=== PATIENT | female | born 1940 | race Caucasian/White ===

== ENCOUNTER → 2017-07-14 | Outpatient (CLI) | payer OTHER, MEDICARE ==
[~2017-07-14] MED LIST: ALLEGRA ALLERG180 MG; ASPIR 8181 MG PO; BENICAR20 MG PO; CENTRUM SILVER1 EAC4 PO; CITRACAL-VIT D1 EAC2; COMBIVENT RESPIM4 GM INH; DUONEB 2.5-0.5 M3 ML; HYDROCHLOROTHIA25 M2 PO; PREDNISONE 20 M20 MG PO; SEREVENT DISKU50 MCG INH; SIMVASTATIN40 MG PO; ZPAK PO
== END ==
LOC: NUC 07:28
DX: I48.91 Unspecified atrial fibrillation (principal)

== ENCOUNTER 2017-08-05 22:55 | Inpatient (IN) | payer OTHER, MEDICARE ==
[~2017-08-05] VITALS: Ht 152.4 cm; Wt 44.9 kg
--- NOTE | ~2017-08-05 | EKG ---
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: ann marie : 1940 Requested By: Sarbina Crowe Order Number: [id number] MD: Boaz Strickland Measurements Intervals [place] Rate: 101 P: 81 MS: 178 QRS: -53 QRSD: 129 T: 94 QT: 364 QTc: 472 Interpretive Statements Sinus tachycardia Left bundle branch block Compared to ECG 02/21/2017 06:22:04 No significant change was found Electronically Signed On 08-06-2017 7:42:29 CDT by Boaz Strickland [email or web address] <ELECTRONICALLY SIGNED> By: Boaz Strickland MD, [facility] 08/06/17 0742 D: 10/2324 24 Boaz Strickland MD, FACC /EPI
[2017-08-05 22:56] VITALS: BP 191/93
[2017-08-05 23:32] LABS: HEMATOCRIT 38.6 % (37.0-47.0); HEMOGLOBIN 12.8 gm/dL (12.0-15.0); MCH 28.9 pg (26.0-34.0); MCHC 33.1 g/dL (28.0-37.0); MCV 87.2 fL (80.0-100.0); PLATELET COUNT 256 thou/uL (150-400); RBC 4.43 mil/uL (4.20-5.00); WBC 10.9 thou/uL (4.0-11.0)
[2017-08-05 23:35] LABS: MANUAL DIFF YES
[2017-08-05 23:38] LABS: ANION GAP 5 mmol/L (7-16); BUN 20 mg/dL (7-18); CALCIUM 10.1 mg/dL (8.5-10.1); CHLORIDE 98 mmol/L (98-107); CO2 35 mmol/L (21-32); CREATININE 1.1 mg/dL (0.6-1.0); GLUCOSE 111 mg/dL (74-106); SODIUM 138 mmol/L (136-145)
[2017-08-05 23:46] LABS: TROPONIN-I < 0.04 ng/mL (<0.04-0.07)
[2017-08-06] VITALS (9 sets, daily range): BP systolic 109–152; BP diastolic 47–67
[2017-08-06 00:27] LABS: ABSOLUTE NEUTROPHILS 5.3 thou/uL (1.4-8.2); ATYPICAL LYMPHS 3 %; TOTAL CELL COUNT 100
[2017-08-06 00:40] LABS: ABG COMMENT HOME O2 AT 2LPM; ABG SAMPLE TYPE ARTERIAL; BE(vivo) 6.1 mmol/L (-2 to +3); HCO3 30.4 mmol/L (22.0-26.0); LACTATE 1.12 mmol/L (0.5-2.0); O2(CT) 18.2 mL/dL (15.0-23.0); O2Hb 96.7 % (92.0-98.0); PCO2 42.7 mmHg (35.0-45.0); STICK SITE R.BRACHIAL; sO2 97.7 % (92.0-98.0); tCO2 31.7 mmol/L (24.0-30.0)
[2017-08-06] MEDS ORDERED: NORVASC10 MG PO (10:35)
[2017-08-07 03:26] VITALS: BP 122/50
[2017-08-07 07:18] LABS: HEMATOCRIT 30.4 % (37.0-47.0); MCH 29.8 pg (26.0-34.0); MCV 87.6 fL (80.0-100.0); RBC 3.47 mil/uL (4.20-5.00); RDW 13.1 % (10.5-14.5)
[2017-08-07 07:20] LABS: HEMOGLOBIN 10.3 gm/dL (12.0-15.0)
[2017-08-07 07:46] LABS: CALCIUM 9.3 mg/dL (8.5-10.1); POTASSIUM 4.4 mmol/L (3.5-5.1)
[2017-08-07 12:32] VITALS: BP 133/52
== END 2017-08-07 14:45 | disposition home or self-care (01) | DRG 304 ==
LOC: ER 22:55 → 4E 08-06 01:37 → EROBS 08-06 01:37 → 4E 08-06 02:19
PROVIDERS: Emergency Medicine; Nurse Practitioner Family
DX: I16.1 Hypertensive emergency (principal); R65.11 Systemic inflammatory response syndrome (SIRS) of non-infectious origin with acute organ dysfunction; N17.9 Acute kidney failure, unspecified; I10 Essential (primary) hypertension; E78.00 Pure hypercholesterolemia, unspecified; M19.90 Unspecified osteoarthritis, unspecified site; F41.9 Anxiety disorder, unspecified; J44.9 Chronic obstructive pulmonary disease, unspecified; M81.0 Age-related osteoporosis without current pathological fracture; Z88.6 Allergy status to analgesic agent; Z95.0 Presence of cardiac pacemaker; Z90.49 Acquired absence of other specified parts of digestive tract; Z90.710 Acquired absence of both cervix and uterus; Z88.1 Allergy status to other antibiotic agents; Z88.2 Allergy status to sulfonamides; Z88.8 Allergy status to other drugs, medicaments and biological substances; Z87.891 Personal history of nicotine dependence; Z79.899 Other long term (current) drug therapy
CPT/HCPCS: 10183

== ENCOUNTER → 2019-01-21 | Outpatient (CLI) | payer OTHER, MEDICARE ==
[~2019-01-21] MED LIST changes: +ASPIRIN325 PO; +CITRACAL + D31 EACH PO; +NORVASC10 MG PO; +SYNTHROID25 MC1 PO; +UNICOMPLEX M TA1 TA1 PO
--- NOTE | 2019-01-21 14:51 | 2DMMODE ---
[facility] [place] [address] 2 D/M-MODE ECHOCARDIOGRAM Name: CRISTI SAGASTUME Room #: REG [facility]#: [id number] ������������� Admission: 01/21/19 ������������� Attend Phys: Davie Mccullough MD Discharge: ��� ������������� ��� Date of : 36 Date of Service: 01/21/19 1451 �� Report #: [id number] �������� ��������������������������������������������[id number] THIS REPORT FOR: //name// APPROVED REPORT Study performed: 01/21/2019 14:06:05 EXAM: Comprehensive 2D, Doppler, and color-flow Echocardiogram Patient Location: Out-Patient Room #: Echo lab 2 Status: routine BSA: 1.36 HR: 77 bpm BP: 138/74 mmHg Rhythm: Pacemaker Other Information Study Quality: Good Indications Pacemaker Hypertension/HDD 2D Dimensions RVDd: 26.28 mm IVSd: 8.14 (7-11mm) LVOT Diam: 21.11 (18-24mm) LVDd: 44.64 mm PWd: 8.35 (7-11mm) Ascending Ao: 23.54 (22-36mm) LVDs: 28.98 (25-40mm) Aortic Root: 26.27 mm IVC: 14.00 mm Volumes Left Atrial Volume (Systole) Single Plane 4CH: 38.26 mL Single Plane 2CH: 25.75 mL LA ESV Index: 26.00 mL/m2 Aortic Valve AoV Peak Alexis.: 1.46 m/s AO Peak Gr.: 8.54 mmHg LVOT Max P.95 mmHg LVOT Max V: 0.86 m/s ROBERT Vmax: 2.06 cm2 Mitral Valve E/A Ratio: 0.7 MV Decel. Time: 166.04 ms [facility] [email or web address] [address] 2 D/M-MODE ECHOCARDIOGRAM Name: CRISTI SAGASTUME Room #: REG [facility]#: [id number] ������������� Admission: 01/21/19 ������������� Attend Phys: Davie Mccullough MD Discharge: ��� ������������� ��� Date of : 36 Date of Service: 01/21/19 1451 �� Report #: [id number] �������� ��������������������������������������������[id number] MV E Max Alexis.: 0.92 m/s MV A Alexis.: 1.26 m/s MV PHT: 48.15 ms IVRT: 143.02 ms Pulmonary Valve PV Peak Alexis.: 1.10 m/s PV Peak Gr.: 4.89 mmHg Pulmonary Vein P Vein S: 0.77 m/s P Vein A: 0.57 m/s P Vein D: 0.62 m/s P Vein A Dur.: 133.8 msec P Vein S/D Ratio: 1.24 Tricuspid Valve TR Peak Alexis.: 3.39 m/s TR Peak Gr.: 45.92 mmHg PA Pressure: 51.00 mmHg Left Ventricle The left ventricle is normal size. There is normal LV segmental wall motion. There is normal left ventricular wall thickness. The left ventricular systolic function is normal. The left ventricular ejection fraction is within the normal range. LVEF is 55-60%. Grade I - abnormal relaxation pattern. Right Ventricle The right ventricle is normal size. The right ventricular systolic function is normal. Pacemaker lead is present in the right ventricle. Atria The left atrium size is normal. The right atrium size is normal. Pacemaker lead is present in the right atrium. Aortic Valve The aortic valve is normal in structure. Aortic valve is calcified. No aortic regurgitation is present. There is no aortic valvular stenosis. Mitral Valve The mitral valve is normal in structure. Mild mitral regurgitation. No evidence of mitral valve stenosis. Tricuspid Valve The tricuspid valve is normal in structure. There is mild tricuspid regurgitation. The right atrial pressure is estimated at 45mmHg. There is moderate pulmonary hypertension. [facility] [address] [place] [address] 2 D/M-MODE ECHOCARDIOGRAM Name: MITESHCRISTI THIBODEAUX Room #: REG CL [facility]#: [id number] ������������� Admission: 01/21/19 ������������� Attend Phys: Davie Mccullough MD Discharge: ��� ������������� ��� Date of : 36 Date of Service: 01/21/19 1451 �� Report #: [id number] �������� ��������������������������������������������[id number] Pulmonic Valve The pulmonary valve is normal in structure. There is no pulmonic valvular regurgitation. Great Vessels The aortic root is normal in size. IVC is normal in size and collapses >50% with inspiration. Pericardium There is no pericardial effusion. <Conclusion> The left ventricle is normal size. There is normal left ventricular wall thickness. The left ventricular systolic function is normal. Grade I - abnormal relaxation pattern. The right ventricle is normal size. Pacemaker lead is present in the right ventricle. The left atrium size is normal. The right atrium size is normal. Pacemaker lead is present in the right atrium. Aortic valve is calcified. Mild mitral regurgitation. There is mild tricuspid regurgitation. The right atrial pressure is estimated at 45mmHg. ��������������������������������������������� <ELECTRONICALLY SIGNED> ���������������������������������������� By: Davie Mccullough MD ��������������������������������������������� 01/21/19 145 [id number] 145 Davie Mccullough MD /INF
== END ==
LOC: CV 09:20
DX: I08.3 Combined rheumatic disorders of mitral, aortic and tricuspid valves (principal); I48.91 Unspecified atrial fibrillation; Z95.0 Presence of cardiac pacemaker

== ENCOUNTER 2019-02-06 18:17 | Emergency (ER) | payer OTHER, MEDICARE ==
[~2019-02-06] VITALS: Ht 152.4 cm; Wt 43.1 kg
[2019-02-06 20:00] LABS: URINE BILIRUBIN NEGATIVE (Negative); URINE BLOOD NEGATIVE (Negative); URINE CLARITY CLEAR; URINE COLOR YELLOW; URINE GLUCOSE-RANDOM* NEGATIVE (Negative); URINE KETONES NEGATIVE (Negative); URINE LEUKOCYTES-REFLEX TRACE (Negative); URINE NITRITE-REFLEX NEGATIVE (Negative); URINE PROTEIN (DIPSTICK) NEGATIVE (Negative); URINE SPECIFIC GRAVITY 1.015 (1.005-1.035); URINE UROBILINOGEN 0.2 E.U./dl (0.2-1.0)
[2019-02-06] MEDS ORDERED: DIFLUCAN200 MG PO (20:32)
[2019-02-06] MEDS ORDERED: MAGIC MOUTHWASH SW&SWALLOW (20:32)
[2019-02-06 20:58] VITALS: BP 171/47
== END 2019-02-06 20:59 | disposition home or self-care (01) ==
LOC: ER 18:17
PROVIDERS: Nurse Practitioner Family
DX: B37.0 Candidal stomatitis (principal); R30.0 Dysuria; M26.623 Arthralgia of bilateral temporomandibular joint; I10 Essential (primary) hypertension; E78.00 Pure hypercholesterolemia, unspecified; M19.90 Unspecified osteoarthritis, unspecified site; Z90.49 Acquired absence of other specified parts of digestive tract; Z90.710 Acquired absence of both cervix and uterus; Z95.0 Presence of cardiac pacemaker; Z87.891 Personal history of nicotine dependence; Z88.1 Allergy status to other antibiotic agents; Z88.2 Allergy status to sulfonamides; Z88.5 Allergy status to narcotic agent; Z88.8 Allergy status to other drugs, medicaments and biological substances

== ENCOUNTER 2019-03-07 16:49 | Inpatient (IN) | payer OTHER, MEDICARE ==
[~2019-03-07] VITALS: Ht 152.4 cm; Wt 41.7 kg
[2019-03-07 16:49] VITALS: BP 148/47
[~2019-03-07 16:49] MED LIST changes: +DIFLUCAN200 MG PO; +MAGIC MOUTHWASH SW&SWALLOW
[2019-03-07 17:21] LABS: ABSOLUTE NEUTROPHILS 13.3 thou/uL (1.4-8.2); BASOPHILS 0.3 % (0.0-2.0); EOSINOPHILS 0.1 % (0.0-3.0); HEMATOCRIT 37.3 % (37.0-47.0); HEMOGLOBIN 12.1 gm/dL (12.0-15.0); LYMPHOCYTES 2.6 % (24.0-44.0); MCH 27.4 pg (26.0-34.0); MCHC 32.5 g/dL (28.0-37.0); MCV 84.3 fL (80.0-100.0); MONOCYTES 3.1 % (1.0-8.0); PLATELET COUNT 349 thou/uL (150-400); POLYS 93.9 % (36.0-66.0); RBC 4.43 mil/uL (4.20-5.00); RDW 14.2 % (10.5-14.5); WBC 14.1 thou/uL (4.0-11.0)
[2019-03-07 17:34] LABS: ANION GAP 9 mmol/L (7-16); BUN 39 mg/dL (7-18); CALCIUM 9.8 mg/dL (8.5-10.1); CHLORIDE 101 mmol/L (98-107); CO2 30 mmol/L (21-32); CREATININE 1.4 mg/dL (0.6-1.0); GLUCOSE 157 mg/dL (74-106); POTASSIUM 4.2 mmol/L (3.5-5.1); SODIUM 140 mmol/L (136-145)
[2019-03-07 17:36] LABS: BE(vivo) 1.4 mmol/L (-2 to +3); HCO3 26.1 mmol/L (22.0-26.0); PCO2 41.6 mmHg (35.0-45.0); PO2 84.2 mmHg (80.0-100.0); pH 7.416 (7.360-7.450); sO2 96.5 % (92.0-98.0)
[2019-03-07 17:43] LABS: ALBUMIN 4.2 g/dL (3.4-5.0); SGOT 24 U/L (15-37); SGPT 27 U/L (30-65); TOTAL BILIRUBIN 0.2 mg/dL (<0.1-1.0); TOTAL PROTEIN 7.8 g/dL (6.4-8.2); TROPONIN-I <0.06 ng/mL (<0.06)
[2019-03-07] MEDS ORDERED: CIPRO500 MG PO (18:21)
[2019-03-07] MEDS ORDERED: PREDNISONE 10 M10 MG PO (18:21)
[2019-03-07 20:19] VITALS: BP 143/52
[2019-03-07 20:45] VITALS: BP 167/49
[2019-03-07 21:31] LABS: URINE BILIRUBIN NEGATIVE (Negative); URINE BLOOD NEGATIVE (Negative); URINE CLARITY CLEAR; URINE COLOR YELLOW; URINE GLUCOSE-RANDOM* NEGATIVE (Negative); URINE KETONES NEGATIVE (Negative); URINE NITRITE-REFLEX NEGATIVE (Negative); URINE PROTEIN (DIPSTICK) 1+ (Negative); URINE SPECIFIC GRAVITY 1.025 (1.005-1.035); URINE UROBILINOGEN 0.2 E.U./dl (0.2-1.0)
[2019-03-07 21:33] LABS: URINE LEUKOCYTES-REFLEX 2+ (Negative)
[2019-03-07 21:37] LABS: BACTERIA-REFLEX >30 Many /HPF (None Seen); CASTS None Seen /LPF (None Seen); CRYSTALS None Seen /LPF (None Seen); MUCUS 0-3 Light strn/LPF (None Seen); SQUAMOUS 4-10 Moderate /LPF (0-3); URINE RBC 0-2 Rare /HPF (0-2)
--- NOTE | 2019-03-07 23:27 | NUR ---
Admission history and assessments completed. Careplan initiated. IVFluids ans antibiotics started.
[2019-03-08 00:30] VITALS: BP 139/40
--- NOTE | 2019-03-08 04:27 | NUR ---
Making slow progress towards outcome goals. IVFluids infusing. High fall risk, fall precautions in place. Uses call light appropriately for needs. For CT Spine r/t findings on Lumbar and T-spine x ray. Vital signs and rhythm stable.
[2019-03-08 04:45] VITALS: BP 131/48
[2019-03-08 05:43] LABS: HEMOGLOBIN 11.1 gm/dL (12.0-15.0); MCH 27.3 pg (26.0-34.0); MCHC 32.7 g/dL (28.0-37.0); MCV 83.6 fL (80.0-100.0); RBC 4.06 mil/uL (4.20-5.00); RDW 14.2 % (10.5-14.5); WBC 7.6 thou/uL (4.0-11.0)
--- NOTE | 2019-03-08 05:48 | NUR ---
Patient awake, 5 beat run vtach. Patient aysmptomatic. Reporsted to Ross flores NP. Check K and Magnesioum level.
[2019-03-08 05:52] LABS: CALCIUM 9.4 mg/dL (8.5-10.1); CREATININE 0.9 mg/dL (0.6-1.0); POTASSIUM 3.7 mmol/L (3.5-5.1)
--- NOTE | 2019-03-08 06:24 | NUR ---
K 3.7 ang Magnesium 1.9. Patient with pacemaker, states it was last interrogated last January by Dr Mccullough.
[2019-03-08 07:29] VITALS: BP 153/63
--- NOTE | 2019-03-08 09:32 | EKG ---
[address] [address] ELECTROCARDIOGRAM REPORT Name: MITESHCRISTI Room #: 363-P ADM IN M.R.#: [id number] ������������������ Admission: 03/07/19 ������������������ Attend Phys: yAaan Pedraza MD Discharge: ������������������ Date of : 38 Report #: [id number] ����������������������������������������������������������������� [id number] THIS REPORT FOR: //name// [facility] ED Test Date: 2019-03-07 Test Time: 17:13:50 Pat Name: CRISTI SAGASTUME Department: Room: 363 Gender: F Director Pharmacology: [id number] : 1940 Requested By: Ian Gramajo Order Number: [id number] MD: Davie Mccullough Measurements Intervals [place] Rate: 86 P: 82 NE: 159 QRS: 85 QRSD: 108 T: 54 QT: 373 QTc: 446 Interpretive Statements Sinus rhythm Nonspecific ST segment abnormality Compared to ECG 05/27/2018 18:24:36 Left bundle-branch block no longer present Electronically Signed On 03-08-2019 9:32:43 CDT by Davie Mccullough [email or web address] ��������������������������������������������� <ELECTRONICALLY SIGNED> ���������������������������������������� By: Davie Mccullough MD ��������������������������������������������� 03/08/19 0932 D: 05/1712 12 Davie Mccullough MD /BHAVIN
[2019-03-08 15:34] VITALS: BP 152/44
[2019-03-08 19:41] VITALS: BP 171/67
--- NOTE | 2019-03-08 20:53 | NUR ---
PT WITH LUNGS COARSE AND DIMINISHED...O2 2L BASELINE..GIVEN PRN DEXTRMETHOPHAN...WILL MONITOR..
[2019-03-09 00:14] VITALS: BP 148/61
[2019-03-09 04:16] VITALS: BP 165/70
--- NOTE | 2019-03-09 04:20 | NUR ---
Patient making progress towards outcome goals. High fall risks, fall precautions in place, Calls out appropriately for needs. IVfluids infusing. Oxygenation optimal with home O2 2L/NC. Still with some difficulty bringing up phlegm.
[2019-03-09 05:26] LABS: CREATININE 0.9 mg/dL (0.6-1.0); MAGNESIUM 1.7 mg/dL (1.8-2.4); POTASSIUM 3.7 mmol/L (3.5-5.1)
[2019-03-09 05:42] LABS: HEMOGLOBIN 11.2 gm/dL (12.0-15.0); MCV 84.7 fL (80.0-100.0); RBC 4.02 mil/uL (4.20-5.00); RDW 14.6 % (10.5-14.5); WBC 9.6 thou/uL (4.0-11.0)
[2019-03-09 07:47] VITALS: BP 155/67
[2019-03-09 09:10] VITALS: BP 157/51; BP 157/71
--- NOTE | 2019-03-09 11:00 | NUR ---
Nutrition: assess d/t low BMI. Pt admitted for COPD exacerbation. Pt states her UBW is ~113#. She has lost some weight over past year d/t medical issues. She was last here in May; weight down ~2 lbs since then. Her appetite has been poor recently, but is starting to improve now. She usually drinks Boost at home. She would like to try mckenna flavored Ensure clear. With nutrition intervention in place, consider low risk.
--- NOTE | 2019-03-09 14:32 | NUR ---
DISCHARGE PLANNING. ANTICIPATED DISCHARGE PLANNED FOR 1-2 DAYS. DISCHARGE PLAN IF TO HOME WITH HOME HEALTH SERVICES. REFERRAL FAXED TO [facility] PER PATIENT REQUEST. [facility] TO REVIEW REFERRAL AND NOTIFY CM ONCE COMPLETE. UNIT CM/SW AWARE. FOLLOWING TO ASSIST WITH DISCHARGE NEEDS.
--- NOTE | 2019-03-09 14:39 | NUR ---
INITIAL ASSESSMENT: Received consult for discharge planning. MEHDI reviewed chart and spoke with nursing and attending physician. Pt was admitted from home due to exacerbation of COPD. Pt is currently on IV abx and IV steroids. MEHDI met with pt at bedside. Introduced role of SW. Pt reports she lives at home alone, but has been staying with her neighbors recently. Prior to admission, pt was using a cane/walker and has home O2 in place through [employer]. Pt is normally on 2L via NC. Pt does have a nebulizer at home for breathing treatments. Pt has used [facility] in the past, and would like to use them again. MEHDI confirmed pt's home address and phone number. Pt's PCP is Dr. Ike Crowe. marketing planner to fax referral to [facility] for review. Plan is for pt to d/c home with HH services when medically stable. MEHDI is following to assist as needed with discharge planning.
[2019-03-09 18:30] VITALS: BP 149/62
--- NOTE | 2019-03-09 18:41 | NUR ---
ASSUMED PATIENT CARE AT 0700. A/O X4. ANXIOUS SOMETIME. DENIES PAIN. VSS. NO DISTRESS NOTED. SLOWLY TOWARDS POC GOALS.
[2019-03-09 20:00] VITALS: BP 170/56
[2019-03-10 04:26] VITALS: BP 164/78
--- NOTE | 2019-03-10 07:01 | NUR ---
Patient ALOx4, she was calm and cooperative all night. New IV 22 guage right AC IV started after left AC IV was accidentally dc'd while she was sleeping. Patient lung sounds were clear at time of assessment. Patient didn't report any distress or SOB overnight. Patient slept most of the shift. Patient has a good, productive cough with slight sputum production. Fall precautions in place. Patient is anxious to go home. Progress toward plan of care.
[2019-03-10 08:11] VITALS: BP 175/51
--- NOTE | 2019-03-10 14:16 | NUR ---
SW reviewed chart and spoke with nursing and attending physician. Pt is progressing towards goals for discharge. Discharge home with [facility] is anticipated in 1-2 days. MEHDI met with pt at bedside. Pt requested to complete Healthcare DPOA ppwk. Pt is alert/orientated x 4. Pt states she would like to appoint her friend, Carlos, as her primary DPOA and her [id number]-oyt, as her alternate DPOA. Pt's wishes documented on her behalf. Pt states that if there is no chance of meaningful recovery, she would not want to be kept alive by artificial means (ventilator support, dialysis, artificial hydration/nutrition). SW explained that these wishes can be amended or changed in the future, if that is desired. Pt verbalized understanding. Healthcare DPOA signed, witnessed and notarized. Pt states she is hoping to discharge by Friday, as she needs to sign the new lease for her new apt by the end of the day on Friday. SW is following to assist as needed with discharge planning.
[2019-03-10 16:50] VITALS: BP 196/62
--- NOTE | 2019-03-10 18:36 | NUR ---
ASSUMED PATIENT CARE AT 0700. A/O X4. TOLERATED ON 3L/NC. AMBULATED IN HALLWAY. PROGRESSING TOWARDS POC GOALS.
[2019-03-10 19:35] VITALS: BP 184/61
--- NOTE | 2019-03-11 00:13 | NUR ---
Patient dc'd from [facility] and is now MS. Patient taken to room 463 by house worker with all belongings. Report called to recieving nurse. Patient very cooperative about transfer.
[2019-03-11 00:52] VITALS: BP 178/68
--- NOTE | 2019-03-11 03:04 | NUR ---
ASSUMED CARE OF PT AT 0000HRS. PT IS AOX4 AND IS COOPERATIVE WITH STAFF. PT HAS A COUGH AND REQUESTED PRN COUGH SYRUP. 2L O2 VIA NC CONTINUED. ABX AND STEROIDS ALSO CONTINUED. PT HAS ELEVATED BP AND PRN BP MED WAS OBTAINED. NO OTHER S/S OF ACUTE DISTRESS. WILL CONTINUE TO MONITOR.
[2019-03-11 04:49] VITALS: BP 151/52
[2019-03-11 07:13] VITALS: BP 153/68
--- NOTE | 2019-03-11 10:28 | NUR ---
Late Entry: MEHDI was notified yesterday afternoon that pt's friend, Carlos, brought in a document that may assist with him signing pt's new apt lease on her behalf, should she still be in the hospital. SW was out of the building. Spiritual care was notified and went to review document for pt. MEHDI discussed with Director of Case Mgmt, that a letter can be formulated for pt if needed stating pt requests her friend, Carlos to sign her new apt lease. Letter would be signed by pt and notarized. Pt transferred to . MEHDI updated 4W CM/SW. MEHDI is following to assist as needed with discharge planning.
[2019-03-11 13:30] VITALS: BP 167/64
--- NOTE | 2019-03-11 14:27 | NUR ---
CARE TEAM INDICATED THAT PT WILL LIKELY BE MEDICALLY STABLE TO DISCHARGE HOME TOMORROW. PT IS TO HAVE [facility]. CM TO FOLLOW INDICATED WITH DC PLANNING.
[2019-03-11 19:45] VITALS: BP 154/52
--- NOTE | 2019-03-11 19:45 | NUR ---
ASSUMED CARE OF PATIENT AT 0715, PATIENT ALERT AND ORIENTED X 4. PATIENT UP WITH ASSIST X 1 TO BSC. PATIENT DENIES PAIN THIS AM, BUT C/O SOME BACK PAIN, BUT REFUSED PAIN MEDS THIS SHIFT, WANTS TO WORK UNTIL LATER TONIGHT. PATIENT HAS RIGHT AC IV IN PLACE, RECEIVING SOLU MEDROL IV. PATIENT WORKED WITH PHYSICAL THERAPY TODAY, AMBULATED IN HALLWAYS. PATIENT HAS O2 AT 2 LITERS/NC IN PLACE, INCREASE WITH ACTIVITY. PATIENT HAS COUGH, BUT REFUSES COUGH SYRUP AND TESSLON PERLES NEW ORDER FROM TODAY. WILL CONTINUE TO MONITOR.
--- NOTE | 2019-03-12 02:13 | NUR ---
ASSUMED CARE AROUND 1900. AXOX4. CHRONIC BACK PAIN TX PER MD ORDER. NO S/S ACUTE DISTRESS NOTED OR REPORTED AT THIS TIME. WILL CONT TO MONITOR FOR ANY CHANGES IN CONDITION.
[2019-03-12 05:02] VITALS: BP 148/68
[2019-03-12 08:00] VITALS: BP 172/65
--- NOTE | 2019-03-12 10:11 | NUR ---
YESTERDAY CM FOLLOWED UP WITH [facility]. HE INDICATED THAT HE HAD NOTERIZED THE DOCUMENT THAT PT NEEDED. CM TO FOLLOW INDICATED WITH DC PLANNING.
[2019-03-12 15:00] VITALS: BP 161/63
--- NOTE | 2019-03-12 15:47 | NUR ---
CARE TEAM INDICATED THAT PT WILL BE MEDICALLY STABLE TO DISHCARGE HOME TOMORROW Friday03/12/19. PT IS TO HAVE [facility] UPON DISCHARGE. ORDERS WILL NEED TO BE FAXED TO . PT WAS ISSUED A FWW FOR HOME USE BY [employer]. NO OTHER CM INTERVENTION INDICATED. CASE CLOSED.
--- NOTE | 2019-03-12 17:59 | NUR ---
PT VS STABLE THROUGHOUT SHIFT. PT UP TO CHAIR FOR SEVERAL HOURS AND WHEN IN BED MAINTAINED AN ELEVATED POSTION. FALL PRECAUTIONS IN PLACE. PT. HAD NO C/O SOA TODAY BUT SHE DID C/O PAIN. TRAMADOL HELPED PAIN SIGNFICANTLY. PLAN FOR D/C HOME TOMORROW. PT RESTING COMFORTABLY.
[2019-03-12 19:12] VITALS: BP 156/62
--- NOTE | 2019-03-13 03:13 | NUR ---
ASSUMED CARE AROUND 1900. AXOX4. PO ATB STARTED THIS PM. NO S/S ACUTE DISTRESS NOTED OR REPORTED AT THIS TIME. WILL CONT TO MONITOR FOR ANY CHANGES IN CONDITION.
[2019-03-13 04:20] VITALS: BP 150/56
[2019-03-13 09:20] VITALS: BP 137/52
[2019-03-13] MEDS ORDERED: BENZONATATE100 MG PO (12:15)
[2019-03-13] MEDS ORDERED: CEFUROXIME500 MG PO (12:15)
[2019-03-13] MEDS ORDERED: CARDIZEM CD120 MG PO (12:15)
[2019-03-13] MEDS ORDERED: MUCINEX600 MG PO (12:15)
[2019-03-13] MEDS ORDERED: ACETAMINOPHEN325 M1 PO (12:15)
[2019-03-13] MEDS ORDERED: DELSYM COU30 MG/5 M1 PO (12:15)
[2019-03-13] MEDS ORDERED: PREDNISONE 20 M20 M1 PO (12:15)
[2019-03-13] MEDS ORDERED: TRAMADOL 50 MG50 MG PO (12:24)
[2019-03-13 13:03] VITALS: BP 137/52
--- NOTE | 2019-03-13 16:41 | NUR ---
PT VITAL SIGNS STABLE THROUGHOUT DAY. PT DISCHARGED HOME WITH HOME HEALTH. [facility] NOTIFIED AND ORDERS FAXED. PT GIVEN DC INSTRUCTIONS, RX'S AND RX INFO. PT FELT BREATHING HAD IMPROVED. PT LEFT UNIT VIA WHEELCHAIR TO PRIVATE VEHICLE. PT HAD PORTABLE O2 FOR RIDE HOME.
== END 2019-03-13 17:14 | disposition home health service (06) | DRG 190 ==
LOC: ER 16:49 → 3W 19:36 → EROBS 19:36 → 3W 20:36 → 4W 03-11 00:14
PROVIDERS: Nurse Practitioner Family; Physician Assistant; ADMIT Internal Medicine
DX: J44.1 Chronic obstructive pulmonary disease with (acute) exacerbation (principal); N17.0 Acute kidney failure with tubular necrosis; J96.11 Chronic respiratory failure with hypoxia; I10 Essential (primary) hypertension; J43.9 Emphysema, unspecified; E78.00 Pure hypercholesterolemia, unspecified; M19.90 Unspecified osteoarthritis, unspecified site; M81.0 Age-related osteoporosis without current pathological fracture; E78.5 Hyperlipidemia, unspecified; E86.0 Dehydration; M54.5 Low back pain; E03.9 Hypothyroidism, unspecified; M51.36 Other intervertebral disc degeneration, lumbar region; G89.29 Other chronic pain; F32.9 Major depressive disorder, single episode, unspecified; R54 Age-related physical debility; Z99.81 Dependence on supplemental oxygen; Z95.0 Presence of cardiac pacemaker; Z90.49 Acquired absence of other specified parts of digestive tract; Z90.710 Acquired absence of both cervix and uterus; Z79.890 Hormone replacement therapy; Z79.82 Long term (current) use of aspirin; Z79.899 Other long term (current) drug therapy; Z88.8 Allergy status to other drugs, medicaments and biological substances; Z88.6 Allergy status to analgesic agent; Z88.1 Allergy status to other antibiotic agents; Z88.2 Allergy status to sulfonamides; Z87.891 Personal history of nicotine dependence
CPT/HCPCS: 10040; 10879

== ENCOUNTER 2019-05-08 17:40 | Emergency (ER) | payer OTHER, MEDICARE ==
[~2019-05-08] VITALS: Ht 152.4 cm; Wt 39.0 kg
[~2019-05-08 17:40] MED LIST changes: +ACETAMINOPHEN325 M1 PO; +ALLEGRA ALLERG180 MG PO; -ASPIR 8181 MG PO; +BENZONATATE100 MG PO; +CARDIZEM CD120 MG PO; +CEFUROXIME500 MG PO; +CIPRO500 MG PO; +CITRACAL + BON1 EACH PO; +DELSYM COU30 MG/5 M1 PO; -DUONEB 2.5-0.5 M3 ML; +FLONASE 0.05%50 MCG NASAL; +IPRAT-ALBUT 0.5-3 ML INH; +LASIX 20 MG TAB20 MG PO; +MUCINEX600 MG PO; +OTHER PHARMACY; +PREDNISONE 10 M10 MG PO; +PREDNISONE 20 M20 M1 PO; -SIMVASTATIN40 MG PO; +TRAMADOL 50 MG50 MG PO; +ZOCOR20 MG PO
[2019-05-08] MEDS ORDERED: ASPIR 8181 MG PO (18:16)
[2019-05-08] MEDS ORDERED: CLARITIN10 MG PO (18:16)
[2019-05-08 19:14] LABS: HEMATOCRIT 30.6 % (37.0-47.0); MCHC 32.8 g/dL (28.0-37.0); MCV 85.3 fL (80.0-100.0); PLATELET COUNT 250 thou/uL (150-400); RBC 3.58 mil/uL (4.20-5.00); RDW 17.3 % (10.5-14.5)
[2019-05-08 19:25] LABS: ANION GAP 5 mmol/L (7-16); BUN 16 mg/dL (7-18); CALCIUM 9.7 mg/dL (8.5-10.1); CHLORIDE 98 mmol/L (98-107); CO2 38 mmol/L (21-32); CREATININE 0.7 mg/dL (0.6-1.0); GLUCOSE 113 mg/dL (74-106); POTASSIUM 3.2 mmol/L (3.5-5.1); SODIUM 141 mmol/L (136-145)
[2019-05-08 19:33] LABS: TROPONIN-I <0.06 ng/mL (<0.06)
[2019-05-08 19:45] LABS: ABSOLUTE NEUTROPHILS 3.2 thou/uL (1.4-8.2)
[2019-05-08 19:46] LABS: ANISOCYTOSIS 1+
[2019-05-08 20:30] VITALS: BP 158/84
--- NOTE | 2019-05-10 08:59 | EKG ---
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 : 1940 Requested By: Koffi Arguelles Order Number: [id number] MD: Boaz Strickland Measurements Intervals [place] Rate: 93 P: 50 MN: 163 QRS: -65 QRSD: 130 T: 85 QT: 381 QTc: 474 Interpretive Statements Sinus rhythm Leftward axis Left bundle branch block Compared to ECG 04/10/2019 20:45:01 No significant change was found Electronically Signed On 05-10-2019 8:58:59 CDT by Boaz Strickland [email or web address] ��������������������������������������������� <ELECTRONICALLY SIGNED> ���������������������������������������� By: Boaz Strickland MD, [facility] ��������������������������������������������� 05/10/19 0858 1746 174 Boaz Strickland MD, FACC /EPI
== END 2019-05-08 20:30 | disposition home or self-care (01) ==
LOC: ER 17:40
PROVIDERS: Emergency Medicine
DX: R06.02 Shortness of breath (principal); F17.210 Nicotine dependence, cigarettes, uncomplicated; I10 Essential (primary) hypertension; E78.00 Pure hypercholesterolemia, unspecified; M19.90 Unspecified osteoarthritis, unspecified site; J44.9 Chronic obstructive pulmonary disease, unspecified; Z88.8 Allergy status to other drugs, medicaments and biological substances; Z88.1 Allergy status to other antibiotic agents; Z88.2 Allergy status to sulfonamides; Z88.6 Allergy status to analgesic agent; Z88.3 Allergy status to other anti-infective agents; Z79.82 Long term (current) use of aspirin; Z79.899 Other long term (current) drug therapy; Z90.49 Acquired absence of other specified parts of digestive tract; Z98.890 Other specified postprocedural states; Z95.0 Presence of cardiac pacemaker

== ENCOUNTER 2019-06-07 12:51 | Inpatient (IN) | payer OTHER, MEDICARE ==
[~2019-06-07] VITALS: Ht 152.4 cm; Wt 39.0 kg
[2019-06-07 12:51] VITALS: BP 192/101
[~2019-06-07 12:51] MED LIST changes: +ASPIR 8181 MG PO; +CLARITIN10 MG PO
[2019-06-07 13:11] LABS: ABSOLUTE NEUTROPHILS 12.3 thou/uL (1.4-8.2); BASOPHILS 0.5 % (0.0-2.0); EOSINOPHILS 1.2 % (0.0-3.0); HEMATOCRIT 38.5 % (37.0-47.0); HEMOGLOBIN 12.4 gm/dL (12.0-15.0); LYMPHOCYTES 10.7 % (24.0-44.0); MCH 26.6 pg (26.0-34.0); MCHC 32.2 g/dL (28.0-37.0); MCV 82.6 fL (80.0-100.0); PLATELET COUNT 312 thou/uL (150-400); POLYS 83.6 % (36.0-66.0); RBC 4.67 mil/uL (4.20-5.00); RDW 17.7 % (10.5-14.5); WBC 14.7 thou/uL (4.0-11.0)
[2019-06-07 13:18] LABS: BE(vivo) 7.3 mmol/L (-2 to +3); HCO3 32.7 mmol/L (22.0-26.0); PCO2 49.3 mmHg (35.0-45.0); PO2 127.6 mmHg (80.0-100.0); pH 7.439 (7.360-7.450); sO2 98.6 % (92.0-98.0)
[2019-06-07 13:23] LABS: ANION GAP 5 mmol/L (7-16); BUN 16 mg/dL (7-18); CALCIUM 10.4 mg/dL (8.5-10.1); CHLORIDE 95 mmol/L (98-107); CO2 36 mmol/L (21-32); CREATININE 1.1 mg/dL (0.6-1.0); GLUCOSE 172 mg/dL (74-106); POTASSIUM 4.4 mmol/L (3.5-5.1); SODIUM 136 mmol/L (136-145)
[2019-06-07 13:34] LABS: ALBUMIN 3.9 g/dL (3.4-5.0); MAGNESIUM 1.8 mg/dL (1.8-2.4); SGOT 23 U/L (15-37); SGPT 28 U/L (30-65); TOTAL BILIRUBIN 0.4 mg/dL (<0.1-1.0); TOTAL PROTEIN 8.2 g/dL (6.4-8.2); TROPONIN-I <0.06 ng/mL (<0.06)
[2019-06-07] MEDS ORDERED: DEMADEX20 MG PO (13:42)
[2019-06-07] MEDS ORDERED: KLOR-CON20 ME1 PO (13:42)
[2019-06-07 14:05] VITALS: BP 151/65
[2019-06-07 14:06] VITALS: BP 151/65
--- NOTE | 2019-06-07 14:14 | NUR ---
PER JAE INPT RN WILL CALL ME RIGHT BACK
[2019-06-07 15:05] VITALS: BP 160/63
--- NOTE | 2019-06-07 16:32 | EKG ---
[address] [place] [address] ELECTROCARDIOGRAM REPORT Name: CRISTI SAGASTUME Room #: 360-P ADM IN M.R.#: [id number] Admission: 06/07/19 Attend Phys: Anatoly Ray MD Discharge: Date of : 36 Report #: [id number] THIS REPORT FOR: //name// [facility] ED Test Date: 2019-06-07 Test Time: 13:01:39 Pat Name: CRISTI SAGASTUME Department: Room: 360 Gender: F Grape Grower: KMDq : 1940 Requested By: Lito Richards Order Number: [id number] MD: Boaz Strickland Measurements Intervals [place] Rate: 101 P: 0 MD: 132 QRS: -61 QRSD: 135 T: 83 QT: 368 QTc: 477 Interpretive Statements Sinus tachycardia ventricular premature complexes Left bundle branch block Baseline wander in lead(s) V2 Compared to ECG 05/08/2019 17:46:57 Ventricular premature complex(es) now present Electronically Signed On 06-07-2019 16:32:35 CDT by Boaz Strickland [email or web address] <ELECTRONICALLY SIGNED> By: Boaz Strickland MD, [facility] 06/07/19 1632 1301 1301 Boaz Strickland MD, [facility] /EPI
--- NOTE | 2019-06-07 17:59 | NUR ---
PATIENT ADMITTED FROM ED, ALERT AND ORIENTED X4. ADMISION COMPLETED, AND NEW POC INTIATED. ASSESMENT CHARTED. C/O SOB, RT NOTIFIED AND GOT BREATHING TX. AND WILL CONTINUE WITH POC.
[2019-06-07 19:25] VITALS: BP 154/56
--- NOTE | 2019-06-08 02:56 | NUR ---
ASSUMED CARE FROM DAY SHIFT PT RESTING IN BED DENIES SOA AT REST BUT STATES SHE IS SOA WHEN SHE GET UP TO BSC. DISCUSSED PLAN OF CARE PT VERBALIZED UNDERSTANDING AND AGREEABLE WILL CONTINUE WITH CURRENT PLAN OF CARE AND WILL REPORT CHANGES OR ABNORMAL FINDINGS.
[2019-06-08 04:04] VITALS: BP 144/53
[2019-06-08 05:45] LABS: ABSOLUTE NEUTROPHILS 4.8 thou/uL (1.4-8.2); HEMATOCRIT 32.7 % (37.0-47.0); HEMOGLOBIN 10.7 gm/dL (12.0-15.0); LYMPHOCYTES 7.3 % (24.0-44.0); MCH 26.7 pg (26.0-34.0); MCHC 32.6 g/dL (28.0-37.0); MCV 81.9 fL (80.0-100.0); MONOCYTES 3.2 % (1.0-8.0); POLYS 89.5 % (36.0-66.0); RDW 17.8 % (10.5-14.5); WBC 5.4 thou/uL (4.0-11.0)
[2019-06-08 06:00] LABS: CALCIUM 9.9 mg/dL (8.5-10.1); POTASSIUM 4.7 mmol/L (3.5-5.1)
[2019-06-08 06:01] LABS: PLATELET COUNT 208 thou/uL (150-400)
[2019-06-08 08:04] VITALS: BP 138/64
[2019-06-08] MEDS ORDERED: CALCIUM 500 +1 EAC5 PO (09:02)
[2019-06-08] MEDS ORDERED: CLARITIN10 MG PO (09:07)
[2019-06-08] MEDS ORDERED: MUCUS-CHES100 MG/5 M PO (09:07)
[2019-06-08] MEDS ORDERED: MUCINEX600 MG PO (09:10)
[2019-06-08 12:24] VITALS: BP 154/65
--- NOTE | 2019-06-08 14:13 | NUR ---
INITIAL ASSESSMENT: Pt evaluated for d/c planning needs. Reviewed chart and spoke with nurse and pt. Pt is alert and oriented. Pt lives alone in apartment and has friend that assists with meal preparation and cooking and cleaning. Pt's friends were planning on going out of town and pt had made arrangements to go to [facility] for 5 days of respite care, but was admitted to the hospital. Pt is currently [facility] with [facility]. Pt states she wants to go skilled at [facility]. PT and OT are working with pt. Asked exercise planner to send referral to [facility]. Pt said she had 4 children, and all are . Pt has no other family. Pt has walker and nebulizer at home, and oxygen through [facility]. Will remain available to assist as needed.
--- NOTE | 2019-06-08 14:23 | NUR ---
DISCHARGE PLANNING. PATIENT REFERRAL FAXED TO [facility]. PATIENT WILL NEED POST ACUTE CARE AT DISCHARGE. REQUESTING REFERRAL SENT TO [facility], FOR POST ACUTE NEED. CALL PLACED TO DELIA TO NOTIFY. [facility]IA TO REVIEW AND NOTIFY CM. FOLLOWING TO ASSIST.
--- NOTE | 2019-06-08 15:11 | NUR ---
PATIENT UP TO BEDSIDE OR COMMODE USING WALKER AND GAIT BELT TO AMBULATE. PATIENT REPORTS INCREASED SOA WITH AMBULATION. UP TO CHAIR FOR MOST OF DAY. REMAINS ON 2L NC WITH O2 SATS IN LOW 90'S. FALL PRECAUTIONS IN PLACE, CALLS FOR ASSIST.
[2019-06-08 16:24] VITALS: BP 143/66
[2019-06-08 19:34] VITALS: BP 161/73
--- NOTE | 2019-06-09 04:05 | NUR ---
ASSUMED CARE AT 1900. PT C/O BEING VERY SOB WITH MINIMAL EXERTION; AFTER GETTING UP TO BSC, NEEDED O2 TURNED UP TO 4L BRIEFLY TO CATCH HER BREATH. NOTED SOME FINE CRACKLES IN RIGHT MID-LOW BASE. DENIED PAIN OR NAUSEA. HAS BEEN SR WITH PVC'S AND OCCASIONAL A-PACING SPIKES. NO OTHER CONCERNS, WILL CONTINUE TO MONITOR.
[2019-06-09 04:20] VITALS: BP 124/52
[2019-06-09 07:27] VITALS: BP 138/64
[2019-06-09 11:32] VITALS: BP 155/69
--- NOTE | 2019-06-09 12:12 | NUR ---
SW reviewed chart and spoke with nursing and attending physician. Pt is progressing towards goals for discharge. Discharge to [facility] is anticipated for tomorrow. SW met with pt at bedside to provide update and discuss discharge plan. Pt is aware and in agreement with discharge plan. SW is following to assist as needed with discharge planning.
[2019-06-09 16:19] VITALS: BP 153/62
[2019-06-09 19:25] VITALS: BP 158/70
--- NOTE | 2019-06-09 20:03 | NUR ---
PATIENT ALERT AND ORIENTED AND PLEASANT WITH SOA WITH EXERTION WITH O2 NC AT 2 LITERS / MINUTE. PATIENT ANTICIPATE DISCHARGE TO [facility] ON FRIDAY. PATIENT CAN GET UP TO BS COMMODE AND KNOWS HER LIMITATIONS.
[2019-06-10 04:20] VITALS: BP 156/58
[2019-06-10 05:56] LABS: CALCIUM 9.8 mg/dL (8.5-10.1); POTASSIUM 5.1 mmol/L (3.5-5.1)
--- NOTE | 2019-06-10 06:46 | NUR ---
ASSUMED CARE AT 1900. PT DENIES PAIN OR NAUSEA. LUNG SOUNDS ARE MORE CLEAR OVERNIGHT THAN PREVIOUS SHIFT, NO CRACKLES NOTED, ONLY COARSE LUNG SOUNDS; PT REPORTS BEING MILDLY LESS SOB WHEN UP TO TOILET/BSC OVERNIGHT. PT SATTING MID 90'S OR HIGHER ON 2L NC. HAS BEEN SR WITH SOME A-PACING AND PVC/PAC'S ON TELE. NO OTHER CONCERNS, WILL CONTINUE TO MONITOR.
[2019-06-10 07:39] VITALS: BP 143/53
[2019-06-10] MEDS ORDERED: PREDNISONE 10 M10 MG PO (10:22)
[2019-06-10 11:39] VITALS: BP 146/50
--- NOTE | 2019-06-10 13:40 | NUR ---
DISCHARGE NOTE: SW reviewed chart and spoke with nursing and attending physician. Pt is medically stable for discharge to [facility]. corporate meeting planner coordinated and notified pt's family. No additional SW needs identified at this time, but is available to assist should needs arise.
== END 2019-06-10 13:22 | DRG 189 ==
LOC: ER 12:51 → EROBS 13:55 → 3W 13:55
PROVIDERS: Emergency Medicine; Hospitalist; Nurse Practitioner; ADMIT Hospitalist
DX: J96.21 Acute and chronic respiratory failure with hypoxia (principal); N17.9 Acute kidney failure, unspecified; E44.0 Moderate protein-calorie malnutrition; I50.30 Unspecified diastolic (congestive) heart failure; Z68.1 Body mass index [BMI] 19.9 or less, adult; J44.1 Chronic obstructive pulmonary disease with (acute) exacerbation; I11.0 Hypertensive heart disease with heart failure; J43.9 Emphysema, unspecified; E78.00 Pure hypercholesterolemia, unspecified; M19.90 Unspecified osteoarthritis, unspecified site; M81.0 Age-related osteoporosis without current pathological fracture; E78.5 Hyperlipidemia, unspecified; Z60.2 Problems related to living alone; E03.9 Hypothyroidism, unspecified; Z79.82 Long term (current) use of aspirin; Z79.899 Other long term (current) drug therapy; Z90.49 Acquired absence of other specified parts of digestive tract; Z90.710 Acquired absence of both cervix and uterus; Z95.0 Presence of cardiac pacemaker; Z98.49 Cataract extraction status, unspecified eye; Z88.1 Allergy status to other antibiotic agents; Z88.2 Allergy status to sulfonamides; Z88.8 Allergy status to other drugs, medicaments and biological substances; Z87.891 Personal history of nicotine dependence
CPT/HCPCS: 10879

== ENCOUNTER 2019-08-04 18:19 | Inpatient (IN) | payer OTHER, MEDICARE ==
[~2019-08-04] VITALS: Ht 152.4 cm; Wt 34.5 kg
[~2019-08-04 18:19] MED LIST changes: +CALCIUM 500 +1 EAC5 PO; +DEMADEX20 MG PO; +KLOR-CON20 ME1 PO; +MUCUS-CHES100 MG/5 M PO
[2019-08-04 18:23] VITALS: BP 164/52
[2019-08-04 19:44] LABS: HEMATOCRIT 35.6 % (37.0-47.0); HEMOGLOBIN 11.2 gm/dL (12.0-15.0); MCH 25.4 pg (26.0-34.0); MCHC 31.4 g/dL (28.0-37.0); MCV 80.8 fL (80.0-100.0); RBC 4.4 mil/uL (4.20-5.00); RDW 18.7 % (10.5-14.5); WBC 20.1 thou/uL (4.0-11.0)
[2019-08-04 19:50] LABS: ANION GAP 3 mmol/L (7-16); BUN 24 mg/dL (7-18); CALCIUM 9.6 mg/dL (8.5-10.1); CHLORIDE 100 mmol/L (98-107); CO2 36 mmol/L (21-32); CREATININE 1.1 mg/dL (0.6-1.0); GLUCOSE 149 mg/dL (74-106); SODIUM 139 mmol/L (136-145)
[2019-08-04 19:59] LABS: TROPONIN-I <0.06 ng/mL (<0.06)
[2019-08-04] MEDS ORDERED: RAYOS5 MG PO (21:49)
[2019-08-05 05:25] LABS: CALCIUM 9.4 mg/dL (8.5-10.1); CREATININE 0.8 mg/dL (0.6-1.0); POTASSIUM 4.1 mmol/L (3.5-5.1)
[2019-08-05 05:26] LABS: HEMATOCRIT 32.4 % (37.0-47.0); HEMOGLOBIN 10.3 gm/dL (12.0-15.0); MCH 25.9 pg (26.0-34.0); MCHC 31.8 g/dL (28.0-37.0); MCV 81.4 fL (80.0-100.0); RBC 3.98 mil/uL (4.20-5.00); RDW 18.2 % (10.5-14.5); WBC 15.4 thou/uL (4.0-11.0)
--- NOTE | 2019-08-05 07:50 | EKG ---
[address] [address] ELECTROCARDIOGRAM REPORT Name: MITESHCRISTI HOWARD Room #: 170-11 ADM IN M.R.#: [id number] Admission: 08/04/19 Attend Phys: Ayaan Pedraza MD Discharge: Date of : 38 Report #: [id number] THIS REPORT FOR: //name// [facility] ED Test Date: 2019-08-04 Test Time: 19:12:24 Pat Name: CRISTI SAGASTUME Department: Room: 170 Gender: F Business Systems Analyst: valerie : 1940 Requested By: Jeffrey Yen Order Number: [id number] MD: Abel Suarez Measurements Intervals [place] Rate: 87 P: 82 PA: 137 QRS: 86 QRSD: 108 T: 59 QT: 356 QTc: 429 Interpretive Statements Sinus rhythm Atrial premature complexes in couplets Borderline right axis deviation Compared to ECG 06/07/2019 13:01:39 Electronically Signed On 08-05-2019 7:50:28 CDT by Abel Suarez [email or web address] <ELECTRONICALLY SIGNED> By: Abel Suarez MD 08/05/19 0750 11 11 Able Suarez MD /BHAVIN
[2019-08-05 15:27] VITALS: BP 141/69
[2019-08-05 15:42] VITALS: BP 154/60
[2019-08-05 16:00] VITALS: BP 174/66
--- NOTE | 2019-08-05 17:52 | NUR ---
79 YO FEMALE ADMITTED TO 440 FROM ED. A&OX4, AMBULATES WITH ASSIST X1 AND WALKER. IV INTACT IN R AC. 02@3L PER NC. LUNG SOUNDS ARE DIMINISHED, OCCASIONAL COUGH REPORTS YELLOW/GREEN SPUTUM. VSS. ORIENTED PT TO ROOM/CALL LIGHT, CALL LIGHT W/I REACH.
[2019-08-05 19:45] VITALS: BP 155/96
--- NOTE | 2019-08-06 03:48 | NUR ---
PATIENT IS ADVANCING SLOWLY IN HER CARE PLAN. VITAL SIGNS STABLE WITH PATIENT HAVING NO COMPLAINTS OF PAIN OR NAUSEA. FULLY ORIENTED PATIENT IS ABLE TO CALL APPROPRIATELY FOR NEEDS AND PARTICIPATE FULLY IN CARE. BREATHING STABLE ON HOME DOSAGE OF OXYGEN EVIDENCED BY ASSESSMENT AND SPOT OXYGENATION CHECKS. UP MULTIPLE TIMES TO BEDSIDE COMMODE WITH ASSISTANCE INCIDENT FREE. PATIENT IS CONSIDERED A HIGH FALL RISK. CONTINUE PLAN OF CARE.
--- NOTE | 2019-08-06 12:41 | NUR ---
ASSUMED CARE OF PT AT 0700. PT IS ON NASAL CANNULA AT 2.0 LITERS OF O2. IV IN RIGHT AC IS INTACT. PT EXPRESSED THATIT BURNED ALITTLE, BUT AFTER FLUSHING THE IV PT IT WAS OKAY. PT IS ON FLUID RESTRICTIONS TO 1500ML DAILY. PER RUBBER SPLICER, PT IS ALLOWED TO HAVE COFFEE AND SUGARS AND RUBBER SPLICER STATED THAT SHE WILL CHANGE THE ORDERS FOR THE PT. BED IN THE LOWEST POSITION. CALL LIGHT WITHIN REACH. FALL PRECAUTIONS IN PLACE AND PT EDUCATED. WILL CONTINUE TO MONITOR THE PT.
--- NOTE | 2019-08-06 13:55 | NUR ---
Met with patient she resides in independent home with family. DPJOSHUA Carlos Perez. All needs on one level. She uses walker for ambulation. She has home oxygen usu at 2 liters. She is current with [facility] care and plan resume [place]. She has been at rehab in past and plans no rehab at [place]. She plans home with HH. Sp with Mr Perez who is agreeable with plan for home with HH. He reports she has been in rehab in past and patient did not do very well in rehab. He reports she cannot do too much because of her endurance. Therefor she fairs better at home with HH care. Patient reports she is to have a BSC and wc delivered on Friday. Her PCP DR Crowe, Concrete Mixer Truck Driver DR Mccullough, Pulmomogist Dr Diaz. IF patient to dc over weekend. Call [facility] [phone] to alert of discharge FAX Orders to [phone]
--- NOTE | 2019-08-06 16:29 | NUR ---
FAXED CLINICAL UPDATE TO [facility] ON SERVICE GREASE AND TALLOW PUMPER RECEIVED CONFIRMATION. DP TO F/U ON FRIDAY.
[2019-08-06 19:26] VITALS: BP 146/80
--- NOTE | 2019-08-07 05:20 | NUR ---
ASSUMED PT CARE ON 08/06/19 AT 1915. PT IS ALERT AND ORIENTED AND AWARE OF LIMITATIONS. PT BECOMES SHORT OF AIR WHEN SHE IS UP AMBULATING. WHEN TAKING THE PATIENT TO THE BSC SHE IS A STANDBY. PT BED ALARM WENT OFF WHEN SHE SAID SHE WAS JUST LEANING FORWARD IN THE BED (FEET WERE OVER THE SIDE OF THE BED IF SHE WERE TRYING TO GET UP) IT TAKES A FEW MINUTES FOR THE PT TO CATCH HER BREATH. PT WAS CONCERNED ABOUT FLUIDS RUNNING LONGER THAN WHAT SHE FELT IT SHOULD. PT REFUSED GUAIFENESIN. PT CALLS OUT APPROPRIATELY WHEN SHE NEEDS TO USE THE BSC. FALL PRECAUTION IN PLACE. CALL LIGHT WITHIN REACH. BED IN LOW POSITION WWITH BED ALARM ON. WILL CONTINUE TO MONITOR PT.
[2019-08-07 07:15] VITALS: BP 130/64
[2019-08-07] MEDS ORDERED: CEFUROXIME500 MG PO (10:40)
[2019-08-07] MEDS ORDERED: RAYOS5 MG PO (10:41)
[2019-08-07 14:58] VITALS: BP 130/64
--- NOTE | 2019-08-07 15:57 | NUR ---
ASSUMED CARE OF PT AT 0700. PT ON 2.0 L OF OXYGEN.PT CONCERNED ABOUT FLUID RESTRICTIONS AND HOW TO CONTINUE RESTRICTIONS AFTER DISCHARGE. GAVE PT INFORMATION ON HOW TO WATCH FLUID INTAKE. PT DISCHARGED WITH ALL PAPERWORK COMPLETED AND MEDICATIONS, PRESCRIPTIONS AND INFORMATION ON MEDICATIONS GIVEN. PT DISCHARGED TO HOME.
--- NOTE | 2019-08-12 19:01 | HC ---
[facility] [address] [place] [address] CONSULTATION Name: MITESHCRISTI Room #: 440-P [facility] M.R.#: [id number] Admission: 08/04/19 Attend Phys: Surekha Luu Discharge: 08/07/19 Date of : 36 Report #: [id number] THIS REPORT FOR: //name// CC: Ike Luu DATE OF SERVICE: 08/06/2019 INFECTIOUS DISEASE CONSULTATION REASON FOR CONSULTATION: Evaluate COPD exacerbation and left lower lobe pulmonary infiltrate. HISTORY OF PRESENT ILLNESS: The patient is an 79-year-old with history of COPD on 2 liters of oxygen per nasal cannula. She is on 10 mg of prednisone a day. She has been in and out of the hospital several times in the last year with exacerbation of her COPD, presents now with a 4-day history of increased shortness of breath, cough and purulent sputum production. No hemoptysis. No chest pain. No travel outside the [place]. No other exposures that she knows of. She does live with 2 caregivers, who have otherwise been well. On presentation, she was afebrile and hemodynamically stable. She remains on 2 liters of oxygen per nasal cannula. Her chest x-ray showed left pleural effusion with associated infiltrate in the left lower lobe. I am awaiting sputum culture results. No history of MRSA. She was placed on broad antibiotic coverage. Overall, feels better today. Her appetite has been reasonable. Her sputum production has decreased. ALLERGIES: Multiple including TEKTURNA, XANAX, AMOXICILLIN, CEFDINIR, CIPROFLOXACIN, LEVOFLOXACIN, SULFA, DOXYCYCLINE, BROVANA, PULMICORT, ADVAIR, SYMBICORT, METOPROLOL SOLU-MEDROL, SPIRIVA, LIPITOR, LOVASTATIN, CODEINE, ACTONEL. CURRENT MEDICATIONS: Include methylprednisolone, azithromycin, ceftriaxone, torsemide, aspirin, amlodipine, loratadine, guaifenesin, ipratropium, albuterol. PAST MEDICAL HISTORY: Bilateral upper extremity nerve repair, right rotator cuff repair, left carpal tunnel surgery, right breast cyst removal, appendectomy, hysterectomy, hypertension, COPD, emphysema, hyperlipidemia, osteoarthritis, osteoporosis, permanent pacemaker, atrial arrhythmias, compression fractures of the spine, kidney cyst, cataract surgery. FAMILY HISTORY: Noncontributory. SOCIAL HISTORY: Past smoker. No significant alcohol intake. No HIV risk factors, no tuberculosis exposure. [facility] [address] [place] [address] CONSULTATION Name: CRISTI SAGASTUME Room #: 440-P [facility] M.R.#: [id number] Admission: 08/04/19 Attend Phys: Surekha Luu Discharge: 08/07/19 Date of : 36 Report #: [id number] REVIEW OF SYSTEMS: Ten-point review was negative other than what has been described above. PHYSICAL EXAMINATION: VITAL SIGNS: Afebrile and hemodynamically stable. GENERAL: She was a short stature. She had kyphosis of her spine. SKIN: Without rash or decubitus. No adenopathy palpable. HEENT: Eyes without scleral icterus. Mouth without mucositis. She did have partial dentures. NECK: Supple, with no thyromegaly or mass. LUNGS: With decreased breath sounds throughout, few crackles in the left base posteriorly. No consolidation. HEART: Regular, without murmur, gallop or rub. Pacemaker pocket was without tenderness or erythema. ABDOMEN: Mildly distended without mass or hepatosplenomegaly. GENITORECTAL: Not performed. EXTREMITIES: Without clubbing, cyanosis or edema. Cranial nerves were intact. Strength in the upper and lower extremities was symmetric and within normal limits. Sensation to touch was normal in upper and lower extremities. BACK: Kyphotic with no percussion tenderness. No CVA tenderness. LABORATORY STUDIES: Blood cultures are pending. Sputum culture is pending. Hemoglobin 10, WBC 15.4, platelet count 203,000. Sodium 143, potassium 4.1, bicarbonate 35, creatinine 0.8. Procalcitonin less than 0.5. IMPRESSION: 1. An 79-year-old with advanced chronic obstructive pulmonary disease, steroid dependent, presents with exacerbation of chronic obstructive pulmonary disease. She has a left pleural effusion and associated infiltrate. May well have bronchopneumonia. 2. Multiple drug allergies and intolerance. 3. Diastolic heart failure. 4. Hypertension. 5. Hyperlipidemia. 6. Degenerative arthritis. RECOMMENDATIONS: We will continue IV antibiotic therapy. Obtain urine antigens and sputum culture. The patient is tolerating her current antibiotic program. We will make no adjustments since she is improving. <ELECTRONICALLY SIGNED> By: Kenney Moreland MD 08/12/19 [id number] Kenney Moreland MD /nt
== END 2019-08-07 15:48 | disposition home health service (06) | DRG 193 ==
LOC: ER 18:19 → 4S 20:41 → EROBS 20:41 → 4S 08-05 16:14
PROVIDERS: Emergency Medicine; Nurse Practitioner Family; ADMIT Hospitalist
DX: J18.9 Pneumonia, unspecified organism (principal); J96.21 Acute and chronic respiratory failure with hypoxia; E43 Unspecified severe protein-calorie malnutrition; I50.30 Unspecified diastolic (congestive) heart failure; Z68.1 Body mass index [BMI] 19.9 or less, adult; J43.9 Emphysema, unspecified; M81.0 Age-related osteoporosis without current pathological fracture; M19.90 Unspecified osteoarthritis, unspecified site; E78.00 Pure hypercholesterolemia, unspecified; I11.0 Hypertensive heart disease with heart failure; E78.5 Hyperlipidemia, unspecified; I48.91 Unspecified atrial fibrillation; E03.9 Hypothyroidism, unspecified; Z90.710 Acquired absence of both cervix and uterus; Z90.49 Acquired absence of other specified parts of digestive tract; Z99.81 Dependence on supplemental oxygen; Z79.899 Other long term (current) drug therapy; Z95.0 Presence of cardiac pacemaker; Z98.49 Cataract extraction status, unspecified eye; Z79.82 Long term (current) use of aspirin; Z88.8 Allergy status to other drugs, medicaments and biological substances; Z88.6 Allergy status to analgesic agent; Z88.2 Allergy status to sulfonamides; Z87.891 Personal history of nicotine dependence
CPT/HCPCS: 10102